=== PATIENT | male | born 1995 | race Caucasian/White ===

== ENCOUNTER 2025-01-14 08:56 | Outpatient (CLI) | payer OTHER, SELFPAY ==
--- OUTSIDE RECORDS SUMMARY | 2025-01-14 09:07 | XMS_ITS | Encounter Summary ---
Author Organization [facility] Address [address] [place] [id number] Care Team Providers Care Sterile Products Processor Name Role Phone Simon Healy Primary Care Provider [phone] Encounter Details Date Type Department Care Team (Late st Contact Info) Description 12/14/2018 Abstract [facility] CONVERSION [address] [place] [address] , Generic Conversion, Social History Tobacco Use Types Packs/Day Years Used Date Smoking Tobacco: Never Assessed Sex and Gender Information Value Date Recorded Sex Assigned at Not on file 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
--- OUTSIDE RECORDS SUMMARY | 2025-01-14 09:07 | XMS_ITS | Clinical Summary ---
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 Gender Identity Not on file Sexual Orientation Not on file Plan of Treatment Health Maintenance Due Date Last Done Comments Annual Physical 02/26/2000 Hepatitis C 2015 DTaP, Tdap and Td Vaccines (8 - Td or Tdap) 01/16/2021 01/16/2011, 01/06/2011, 11/20/2001, Additional history exists COVID-19 Vaccine ( season) 2024 Hepatitis B Vaccines Completed 1997, 1997, 1997 Meningococcal Vaccine Completed 01/14/2015, 013 HPV Vaccines Completed 08/27/2015, 03/2015, 02/14/2013 Meningococcal B Vaccine Aged Out No l onger eligible based on patient's age to complete this topic Pneumococcal Vaccine: Pediatrics (0 to 5 Years) and At-Risk Patients (6 to 49 Years) Aged Out No longer eligible based on patient's age to complete this topic RSV Immunizations Under 20 Months Aged Out No longer eligible based on patient's age to complete this topic Insurance [employer] Care Teams Hat Braider Relationship Specialty Start Date End Date Simon Healy PA [address] [place] [phone] PCP - General PHYSICIAN MAINTENANCE PARTS TECHNICIAN 06/03/24
--- NOTE | 2025-02-17 13:51 | PCRCNOTE ---
Pt arrived approx 9am, 1 hour prior to scheduled test time. PFT scheduled at 10, patient left at [phone] per volunteer. Didnt want to wait.
== END 2025-01-14 08:57 | disposition home or self-care (01) ==
PROVIDERS: PCP Physician Assistant; Visit Provider Physician Assistant
DX: R06.02 Shortness of breath (principal)
CPT/HCPCS: 99199